=== PATIENT | female | born 1945 | race Caucasian/White ===

== ENCOUNTER 2016-11-18 11:32 | Emergency (ER) | payer MEDICARE, OTHER ==
--- NOTE | ~2016-11-18 | CR21 ---
[facility] A Service [facility] RADIOLOGY TEXT RESULTS PATIENT: MARY COOMBS LOCATION: [facility] : 41 UNIT #: [id number] AGE: [address]: Alley Bravo SEX: F ORDER DR: [id number] [facility] [address] [place], [place] [address] [id number] MR#: [id number] #: [id number] NAME: MARY COOMBS. : 1945 SEX: F STUDY DATE/TIME: 11/18/2016 12:24 UNIT: [facility] ROOM: STUDY DESCRIPTION: CR Ankle Min 3 Views Rt Attending Physician: Alley Bravo Pa-C Ordering Physician: Ed Layton Davis M.D. Primary Care Physician: No Primary Care Physician MEDICAL IMAGING REPORT This report is preliminary unless electronic signature is present EXAM Right ankle, 11/18/2016. INDICATION Pain and swelling in the right ankle for 3 weeks, twisting injury. TECHNIQUE Three views of the right ankle. COMPARISON 02/28/2014 FINDINGS Postop changes related to the distal first metatarsal. There is soft tissue swelling lateral greater than medial. The bones are osteopenic. No acute fracture. There are atherosclerotic calcifications. IMPRESSION Generalized soft tissue swelling more focally conspicuous laterally but no acute fracture. The bones are osteopenic. Dictated by... Benja Serrano M.D. THIS IS AN ELECTRONICALLY VERIFIED REPORT Benja Serrano M.D. at 11/19/2016 8:46 AM ROSE/catherine TD: 11/18/2016 22:35 JOB #: [id number] [facility] A Service [facility] RADIOLOGY TEXT RESULTS PATIENT: MARY COOMBS LOCATION: [facility] : 41 UNIT #: [id number] AGE: [address]: Alley Bravo SEX: F ORDER DR: MEDICAL IMAGING REPORT Page 1 of 1 COPY
[~2016-11-18 11:32] MED LIST: ALPRAZOLAM0.5 MG PO; B 12 PO; BENADRYL25 M1 PO; CIPRO250 M1 PO; CITALOPRAM HBR40 MG PO; DOCU SOFT100 M1 PO; FERRO-TIME325 MG PO; HYDROCODON-ACE1 EAC5 PO; LASIX20 MG PO; METOPROLOL TART25 MG PO; OMEPRAZOLE MAGN20 MG PO; PAIN RELIEF500 M2 PO; POTASSIUM CHLO10 ME1 PO; PROAIR HFA8.5 GM IH; TEMAZEPAM30 MG PO
== END 2016-11-18 13:18 | disposition home or self-care (01) ==
LOC: CFTX 11:32 → CED 11:32 → CFTX 12:15
DX: S93.401A Sprain of unspecified ligament of right ankle, initial encounter (principal); I10 Essential (primary) hypertension; X50.1XXA Overexertion from prolonged static or awkward postures, initial encounter; Y92.027 Garden or yard of mobile home as the place of occurrence of the external cause
CPT/HCPCS: 29540; 73610; 99283